=== PATIENT | male | born 1975 | race Hispanic/Latino ===

== ENCOUNTER 2022-12-17 01:52 | Emergency (ER) | payer OTHER ==
[~2022-12-17] VITALS: Ht 167.6 cm; Wt 123.8 kg
[2022-12-17] MEDS ORDERED: HYDRALAZINE HCL 20 MG/ML VIAL ONE ×2 (02:18→03:15)
[2022-12-17] MEDS ORDERED: IOPAMIDOL 370 MG/ML 100 ML INFUS..BTL INJ ONE (02:45)
[2022-12-17 02:53] LABS: INR 0.88; PARTIAL THROMBOPLASTIN TIME 25.4 seconds (23.8-35.5); PROTHROMBIN TIME 12.4 seconds (11.9-14.5)
[2022-12-17 02:54] LABS: ALANINE AMINOTRANSFERASE 18 IU/L (0-55); ALBUMIN 3.8 g/dL (3.5-5.0); ALKALINE PHOSPHATASE 220 IU/L (40-150); ANION GAP 13.6 mmol/L (8-16); BLOOD UREA NITROGEN 12 mg/dL (7-26); BUN/CREATININE RATIO 13 (6-25); CALCIUM 9.7 mg/dL (8.4-10.2); CARBON DIOXIDE 27 mmol/L (22-29); CHLORIDE 102 mmol/L (98-107); CREATININE, SERUM 0.94 mg/dL (0.72-1.25); GLUCOSE 337 mg/dL (74-118); POTASSIUM 3.6 mmol/L (3.5-5.1); SODIUM 139 mmol/L (136-145)
[2022-12-17 02:55] LABS: BASOPHILS # (AUTO) 0.1 (0.0-0.1); BASOPHILS % 0.8 % (0.0-1.0); EOSINOPHILS # (AUTO) 0.1 (0.0-0.4); EOSINOPHILS % 1.2 % (0.0-6.0); HEMATOCRIT 52.8 % (38.2-49.6); HEMOGLOBIN 17.7 g/dL (14.0-18.0); LYMPHOCYTES % 44.6 % (18.0-39.1); MEAN CORPUSCULAR HEMOGLOBIN 29.7 pg (28-32); MEAN CORPUSCULAR HGB CONC 33.5 g/dL (31-35); MEAN CORPUSCULAR VOLUME 88.6 fL (81-99); MONOCYTES # (AUTO) 0.8 (0.2-0.8); MONOCYTES % 7.4 % (4.4-11.3); NEUTROPHILS # (AUTO) 5.1 (2.1-6.9); NEUTROPHILS % 45.6 % (38.7-80.0); PLATELET COUNT 294 x10e3/uL (140-360); RED BLOOD COUNT 5.96 x10e6/uL (4.3-5.7); RED CELL DISTRIBUTION WIDTH 12.6 % (11.7-14.4)
[2022-12-17] MEDS ORDERED: ASPIRIN 325 MG TAB ONE ×2 (02:57→02:58)
== END 2022-12-17 04:17 | disposition other institution (70) ==
LOC: ER 01:52
DX: I16.1 Hypertensive emergency (principal); I63.9 Cerebral infarction, unspecified; E11.65 Type 2 diabetes mellitus with hyperglycemia; I10 Essential (primary) hypertension; Z20.822 Contact with and (suspected) exposure to COVID-19; R94.31 Abnormal electrocardiogram [ECG] [EKG]
CPT/HCPCS: 36415; 70496; 70498; 80053; 80320; 85025; 85610; 85730; 93005; 99284; J0360; Q9967; U0002